=== PATIENT | female | born 1990 | race African-American/Black ===

== ENCOUNTER 2024-04-10 13:55 | Outpatient (CLI) | payer OTHER, SELFPAY ==
--- NOTE | ~2024-04-10 | US_ITS ---
EXAMINATION: US OB <=14 wk fetus w TV DATE: 04/10/2024 14:21 INDICATION: Amenorrhea. Assess dating of first trimester . TECHNIQUE: Real-time pelvic ultrasound utilizing both a transvaginal and transabdominal probe was pe rformed. The interpreting radiologist was not present for the study. COMPARISON: None. FINDINGS: The uterus measures 13.9 x 8.2 x 8.7 cm. There is an intrauterine gestational sac. A yolk sac and fe иван pole are identified. The crown rump length measures 2.7 cm, which correlates with an estimated ge stational age of 9 weeks and 3 days. heart motion is identified measuring 169 beats per minute (bpm) by M-mode Doppler. 1.8 x 1.2 x 0.4 similar hypoechoic subchorionic hematoma along the left side of the gestational sac. There is a 1.8 x 1.5 x 1.2 cm hypoechoic subserosal fibroid at the posterior body of the uterus. The right ovary is not visualized. The left ovary measures 3.1 x 2.6 x 2.7 cm. 1.8 cm anechoic likely corpus luteum cyst in the left ovary. Vascular flow identified in the left ovary on color Doppler. T here is no free fluid in the pelvis. IMPRESSION: 1. Single living fetus with heart rate of 169 bpm. 2. Gestational age by ultrasound of 9 weeks 3 day(s) +/- 6 day(s) with ultrasound estimated date of delivery (ASHANTI) of 11/10/2024. 3. Small subchorionic hematoma. 4. 1.8 cm uterine fibroid. Reviewed, dictated and finalized at location A. P CAPTAIN IMPRESSION: 1. Single living fetus with heart rate of 169 bpm. 2. Gestational age by ultrasound of 9 weeks 3 day(s) +/- 6 day(s) with ultraso und estimated date of delivery (ASHANTI) of 11/10/2024. 3. Small subchorionic hematoma. 4. 1.8 cm uterine fibroid.
== END 2024-04-10 13:56 | disposition home or self-care (01) ==
LOC: MICIMG 13:55
PROVIDERS: PCP Nurse Practitioner Obstetrics & Gynecology; Visit Provider Nurse Practitioner Obstetrics & Gynecology
DX: N91.2 Amenorrhea, unspecified (principal); D25.9 Leiomyoma of uterus, unspecified; Z3A.09 9 weeks gestation of pregnancy
CPT/HCPCS: 76801; 76817

== ENCOUNTER 2024-10-03 12:31 | Observation (INO) | payer OTHER, SELFPAY ==
--- NOTE | ~2024-10-03 | US_ITS ---
LIMITED OBSTETRIC ULTRASOUND/BIOPHYSICAL PROFILE Ordering provider: Emeterio Larson MD History: . GEORGE- perform at bedside due to FHR decelerations . Comparison: None. FINDINGS: MATERNAL CERVIX: Not visualized. cm which is normal (normal is equal to or greater than 3.0 cm). PRESENTATION: Vertex. Longitudinal lie. PLACENTAL LOCATION: Anterior. No previa. HEART RATE: 138 bpm (normal is between 110 to 160 bpm). AMNIOTIC FLUID INDEX: 7.9 cm. 5th percentile is 8.1 cm. 95th percentile is 24.8 cm. Largest vertical pocket is 3 cm. normal (GEORGE between 5-25 cm in from 20-35 weeks gestation is considered normal). OTHER: Maternal ovaries not visualized. SCORE: breathing movements: 2 movements: 2 tone: 2 Amniotic fluid volume: 2 Total: 8 IMPRESSION: Normal biophysical profile. Low amniotic fluid index. Reviewed, dictated and finalized at location A.
--- OUTSIDE RECORDS SUMMARY | 2024-10-03 14:03 | XMS_ITS | Encounter Summary ---
Author Organization [facility] Address [facility] [place] [address] Care Team Providers Care Eight Arm Operator Name Role Phone Regi Borja MD Primary Care Provider [phone] Encounter Details Date Type Department Care Team (Latest Contact Info) Description 03/11/2024 Ener-G-Rotors Message Enc [facility] Medical Group Multispecialty Care - [place] [address] [address] [place] [address] Regi Borja MD [address] [place] [id number] Vaccines/medication for [place], possibly Social History Tobacco Use Types Packs/Day Years Used Date Smoking Tobacco: Never Passive Smoke Exposure: Never Smokeless Tobacco: Never Comments:Counseled by Dr. Sweta larkin. Alcohol Use Standard Drinks/Week Comments Yes 1.7 (1 standard drink = 0.6 oz p ure alcohol) PHQ-2 Answer Date Recorded Patient Health Questionnaire-2 Score 0 02/28/2024 Comments No Sex and Gender Information Value Date Recorded Sex Assigned at Not on file Legal Sex Female 10:53 AM RAIL BONDER Gender Identity Not on file Sexual Orientation Not on file documented as of this encounter Plan of Treatment Not on file documented as of this encounter Visit Diagnoses Not on filedocumented in this encounter Additional Health Concerns Assessment Noted Time PHQ-9 Depression Total Score: 1 02/28/20 24 11:47 AM RAIL BONDER documented as of this encounter Care Teams Eight Arm Operator Relationship Specialty Start Date End Date Regi Borja MD [address] [place] [id number] PCP - General INTERNAL MEDICINE 08/23/22 documented as of this encounter
--- OUTSIDE RECORDS SUMMARY | 2024-10-03 14:03 | XMS_ITS | Referral Summary ---
Author Organization [facility] at the Medical Office Building Address [address] [place] [address] Care Team Providers Care Tool Mechanic Name Role Phone No, Physician Primary Care Provider [phone] Allergies No known active allergies Medications SUMAtriptan (IMITREX) 50 mg tablet Take 1 tablet (50 mg total) by mouth 2 (two) times a day as needed 07/01/2023 Active rimegepant (NURTEC ODT) tablet,disintegr ating Take 1 tablet (75 mg total) by mouth daily as needed 07/01/2023 Active methocarbamoL (ROBAXIN) 750 mg tablet Take 1 tablet (750 mg total) by mouth 2 (two) times a day as needed 07/01/2023 Active ibuprofen 200 mg tab/cap Take 2 tablet/caps ule (400 mg total) by mouth daily as needed Active cetirizine (ZyrTEC) 10 mg tablet Take 1 tablet (10 mg total) by mouth daily as needed Active Active Problems Problem Noted Date Diagnosed Date Supervision of normal first , antepartu 01/05/2019 Overview (08/02/2019): First Trimester: [x] Labs [x] Genetic Screeninnd Trimester: [x] Anatomy ultrasound 3rd Trimester: [x] CBC, HIV, syphilis screen [x] 1hr GCT (26-28wks): [x] Tdap (27-36wks) 06/12 [] Rhogam (if Rh neg): [x] GBS Sprain of anterior talofibular ligament of right ankle 12/28/2018 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 file Not on file Not on file Last Filed Vital Signs Vital Sign Reading Time Taken Comments Blood Pressure 108/60 07/20/2023 10:19 AM CDT Pulse 62 08/09/2019 10:59 AM CDT Temperature 36.9 C (98.5 F) 08/09/2019 10:59 AM CDT Respiratory Rate - - Oxygen Saturation 98% 08/09/2019 10:59 AM CDT Inhaled Oxygen Concentration - - Weight 80.3 kg (177 lb) 07/20/2023 10:19 AM CDT Height 162.6 cm (5' 4) 07/20/2023 10:19 AM CDT Body Mass Index 30.38 07/20/2023 10:19 AM CDT Plan of Treatment Not on file Procedures Procedure Name Priority Date/Time Associated Diagnosis Comments HIGH RISK HPV DNA DETECTION WITH GENOTYPING Routine 07/20/2023 11:40 AM CDT Encounter for screening for malignant neoplasm of cervix HEPATITIS C ANTIBODY Routine 12/28/2018 1:36 PM CDT Missed menses from Last 3 Months or Most Recently Relevant to Health Maintenance Results * High Risk HPV DNA Detection with Genotyping (Molecular component) (07/20/2023 11:40 AM CDT) HPV HR 16 Not Detected Not Detected [facility] Comment:Testing performed by : [facility], [address] [place]., [address] HPV HR 18 Not Detected Not Detected [facility] Comment:Testing performed by : [facility], [address] [place]., [address] HPV HR Non 16/18 Not Detected Not Detected [facility] Comment: Interpretive Data Nucleic acid amplification for detection of high-risk Human Papilloma virus (HPV) is performed by the Jocelyne Estelita 6800 HPV test. This assay specifically detects HPV-16 and HPV-18 genotypes. The following HPV genotypes are detected as high-risk HPV: HPV-31, 33, 35, ,39, 45, 51, 52, 56, 58, 59, 66, and 68. This assay has been approved by the [place] Food and Drug Administration for detection of HPV in cervical specimens collected by a physician using an endocervical brush/spatula or cervical broom and placed in the ThinPrep Pap Test PreservCyt collection containers. The performance characteristics of this test have been verified by the [facility] Molecular Infectious Disease laboratory. Correlate with separately reported cytology results, as applicable. Interpretive data last revised 22 Testing performed by: [facility], [address] [place]., [address] Endocervical 07/20/2023 11:4 0 AM CDT 07/20/2023 6:02 PM CDT Narrative [facility] - 07/21/2023 4:32 AM CDT Clinical history and diagnosis->routine Number of vials->1 Testing type->Screening Last menstrual period (date if known)->07/12/2023 us Gustavo Glass MD LAB BODY FLUIDS AND STOO LS ORDERABLES Final Result [facility] [address] [facility] [place] [address] [facility] * Hepatitis C antibody (12/28/2018 1:36 PM CDT) Pathologist [facility] Hep C Ab NONREACT NONREACTIVE [facility] Comment: Siemens CentaurXP using TONEY (chemiluminescent immunoassay) technology. NONREACTIVE: Antibodies to Hepatitis C not detected. This does not exclude early acute Hepatitis C infection, possibility of exposure to Hepatitis C, antibodies below detection limit, or to lack of antibody reactivity to the antigen used in this assay. EQUIVOCAL: Antibodies to Hepatitis C may or may not be present. Sample to be confirmed by real-time PCR method. REACTIVE: Antibodies to Hepatitis C detected.Sample to be confirmed by real-time PCR method. Blood specimen (specimen) 12/28/2018 1:36 PM CDT 12/28/2018 2:01 PM CDT Narrative Resulting Agency Comment CLI Lalo Snyder DO LAB MICROBIOLOGY - GEN ERAL ORDERABLES Final Result [address] [address], [facility] [phone] from Last 3 Months or Most Recently Relevant to Health Maintenance [facility] [employer] [facility] [id number] Care Teams Tool Mechanic Relationship Specialty Start Date End Date No, Physician PCP - General 12/05/18
--- OUTSIDE RECORDS SUMMARY | 2024-10-03 14:03 | XMS_ITS | Encounter Summary ---
Author Organization [facility] Address [address] [place] [address] Care Team Providers Care Vertical Contour Band Saw Operator Name Role Phone Regi Borja MD Primary Care Provider [phone] Encounter Details Date Type Department Care Team (Latest Contact Info) Description 07/14/2023 Clinipace WorldWidet Message Enc [facility] Medical Group Multispecialty Care - [place] [address] [address] [place], [place] [id number] Regi Borja MD [facility] [address] Multiple Nose bleeds Social History Tobacco Use Types Packs/Day Years Used Date Smoking Tobacco: Never Passive Smoke Exposure: Never Smokeless Tobacco: Never Comments:Counseled by Dr. Sweta larkin. Alcohol Use Standard Drinks/Week Comments Yes 1.7 (1 standard drink = 0.6 oz p ure alcohol) PHQ-2 Answer Date Recorded Patient Health Questionnaire-2 Score 0 05/31/2022 Comments No Sex and Gender Information Value Date Recorded Sex Assigned at Not on file Legal Sex Female 10:53 AM MEDICAL CLAIMS REPRESENTATIVE Gender Identity Not on file Sexual Orientation Not on file documented as of this encounter Plan of Treatment Not on file documented as of this encounter Visit Diagnoses Not on filedocumented in this encounter Care Teams Vertical Contour Band Saw Operator Relationship Specialty Start Date End Date Regi Borja MD [address] [id number] PCP - General INTERNAL MEDICINE 08/23/22 documented as of this encounter
--- OUTSIDE RECORDS SUMMARY | 2024-10-03 14:03 | XMS_ITS | Clinical Summary ---
Author Organization [facility] Address [address] [place] [address] Care Team Providers Care Pain Medicine Physician Name Role Phone Regi Borja MD Primary Care Provider [phone] Allergies No known active allergies Medications ibuprofen (MOTRIN) 200 MG tablet Take 2 tablets (400 mg total) by mouth daily as needed for Pain. Active cetirizine (ZYRTEC) 10 MG tablet Take 1 tablet (10 mg total) by mouth daily as needed for Allergies. Active methocarbamol (ROBAXIN) 750 MG TabIndications:Top Spotter julia midline low back pain with bilateral sciatica Take 1 tablet (750 mg total) by mouth 2 (two) times daily as needed. 60 tablet 1 4 Active rimegepant (NURTEC) 75 MG disintegrating tabletIndications:I ntractable migraine with aura with status migrainosus Take 1 tablet (75 mg total) by mouth daily as needed for Migraine. Max of 1 tablet (75 mg) in 24 hours. 16 tablet 6 4 Active SUMAtriptan (IMITREX) 50 MG tabletIndications:I ntractable migraine with aura with status migrainosus Take 1 tablet (50 mg total) by mouth 2 (two) times daily as needed for Migraine. Max of 4 tablets (200 mg) in 24 hours. 8 tablet 6 4 Active Mefloquine HCl 250 MG TabIndications:Need for malaria prophylaxis Take 250 mg once weekly starting 2 weeks before arrival in endemic area, continue weekly while in endemic area and weekly for 4 weeks after leaving endemic area. 8 tablet 4 Active Active Problems Problem Noted Date Diagnosed Date Acute midline low back pain with bilateral sciat ica 04/15/2023 Immunizations Immunization Administration Dates Next Due Influenza Adult (Generic) 01/31/2024,02/02/2022 Tdap (Generic) 06/13/2019 Family History Medical History Relation Comments Asthma Father Hypertension Father Cancer Maternal Grandfather Hyperlipidemia Mother Diabetes Paternal Grandfather Hyperlipidemia Paternal Grandfather Asthma Sister Relation Status Comments Father Maternal Grandfather Mother Paternal Grandfather Sister Social History Tobacco Use Types Packs/Day Years Used Date Smoking Tobacco: Never Passive Smoke Exposure: Never Smokeless Tobacco: Never Tobacco Cessation:Counseling Given: Yes Comments:Counseled by Dr. Borja. Alcohol Use Standard Drinks/Week Comments Yes 1.7 (1 standard drink = 0.6 oz p ure alcohol) PHQ-2 Answer Date Recorded Patient Health Questionnaire-2 Score 0 02/28/2024 Comments No Sex and Gender Information Value Date Recorded Sex Assigned at Not on file Legal Sex Female 10:53 AM FIRESETTER Gender Identity Not on file Sexual Orientation Not on file Last Filed Vital Signs Vital Sign Reading Time Taken Comments Blood Pressure 115/73 02/28/2024 11:20 AM FIRESETTER Pulse 55 02/28/2024 11:20 AM FIRESETTER Temperature 36.6 C (97.8 F) 02/28/2024 11:20 AM FIRESETTER Respiratory Rate 18 02/28/2024 11:20 AM FIRESETTER Oxygen Saturation 99% 02/28/2024 11:20 AM FIRESETTER Inhaled Oxygen Concentration - - Weight 81 kg (178 lb 9.6 oz) 02/28/2024 11:20 AM FIRESETTER Height 161.3 cm (5' 3.5) 02/28/2024 11:20 AM CS T Body Mass Index 31.14 02/28/2024 11:20 AM FIRESETTER Plan of Treatment Health Maintenance Due Date Last Done Comments Hepatitis B Vaccines (1 of 3 - 19+ 3-dose series) 05/20/2007 Cervical Cancer Screening Pa p with HPV Testing (Age 30 to 64) Every 5 Years 2018 COVID-19 Vaccine ( - 2023-2 5 season) 2023 06/12/2020, 05/15/2020 PHQ-2 (Physician [place]) 03/21/2024 02/28/2024 Annual Physical 02/27/2025 02/28/2024, 07/22/2022 Cervical Cancer Screening Pa p Smear (Age 30 to 64) Every 3 Years 07/19/2026 07/20/2023 Cervical Cancer Screening with HPV 07/19/2026 DTaP, Tdap and Td Vaccines ( 2 - Td or Tdap) 06/12/2029 06/13/2019 Hepatitis C 07/22/2052 Postponed from 2006 (Patient Refused) HPV Vaccines Aged Out No longer eligi ble based on patient's age to complete this topic Meningococcal B Vaccine Aged Out No l onger eligible based on patient's age to complete this topic Meningococcal Vaccine Aged Out No homer antoinette eligible based on patient's age to complete this topic Pneumococcal Vaccine: Pediatrics (0 to 5 Years) and At-Risk Patients (6 to 49 Years) Aged Out No longer eligible b ased on patient's age to complete this topic RSV Immunizations Under 20 Months Aged Out No longer eligible b ased on patient's age to complete this topic Insurance [email or web address] Care Teams Pain Medicine Physician Relationship Specialty Start Date End Date Regi Borja MD [address] [address] PCP - General INTERNAL MEDICINE 08/23/22
--- OUTSIDE RECORDS SUMMARY | 2024-10-03 14:04 | XMS_ITS | Encounter Summary ---
Author Organization [facility] Address [facility] [place] [address] Care Team Providers Care Fish Hatchery Specialist Name Role Phone Regi Borja MD Primary Care Provider Encounter Details Date Type Department Care Team (Late st Contact Info) Description 04/19/2023 MyChart Message Enc [facility] Medical Group Multispecialty Care - [place] [address] [address] [place] [address] Regi Borja MD [facility] [address] Xray Social History Tobacco Use Types Packs/Day Years Used Date Smoking Tobacco: Never Passive Smoke Exposure: Never Smokeless Tobacco: Never Alcohol Use Standard Drinks/Week Comments Yes 1.7 (1 standard drink = 0.6 oz p ure alcohol) PHQ-2 Answer Date Recorded Patient Health Questionnaire-2 Score 0 05/31/2022 Comments No Sex and Gender Information Value Date Recorded Sex Assigned at Not on file Legal Sex Female 10:53 AM OUTPATIENT PHYSICAL THERAPIST Gender Identity Not on file Sexual Orientation Not on file documented as of this encounter Plan of Treatment Not on file documented as of this encounter Visit Diagnoses Not on filedocumented in this encounter Care Teams Fish Hatchery Specialist Relationship Specialty Start Date End Date Regi Borja MD [address] [place] [address] PCP - General INTERNAL MEDICINE 08/23/22 documented as of this encounter
--- OUTSIDE RECORDS SUMMARY | 2024-10-03 14:04 | XMS_ITS | Encounter Summary ---
Author Organization [facility] Address [facility] [place] [address] Care Team Providers Care Water Valve Mechanic Name Role Phone Regi Borja MD Primary Care Provider [phone] Encounter Details Date Type Department Care Team (Latest Contact Info) Description 12/13/2022 Veebowt Message Enc [facility] Medical Group Multispecialty Care - [place] [address] [address] [place] [address] Regi Borja MD [address] [place] [address] PT Referral Request Social History Tobacco Use Types Packs/Day Years [...] on file Legal Sex Female 10:53 AM EXPERIMENTAL ROCKETSLED MECHANIC Gender Identity Not on file Sexual Orientation Not on file documented as of this encounter Plan of Treatment Not on file documented as of this encounter Visit Diagnoses Not on filedocumented in this encounter Care Teams Water Valve Mechanic Relationship Specialty Start Date End Date Regi Borja MD [address] [place] [address] PCP - General INTERNAL MEDICINE 08/23/22 documented as of this encounter
--- OUTSIDE RECORDS SUMMARY | 2024-10-03 14:04 | XMS_ITS | Clinical Summary ---
Author Organization [facility] at the Medical Office Building Address [address] [place] [address] Care Team Providers Care Mill Beam Fitter Name Role Phone No, Physician Primary Care Provider [phone] Allergies No known active allergies Medications SUMAtriptan [...] Immunization Administration Dates Next Due Tdap 06/13/2019 Surgical History Surgery Date Site/Laterality Comments KNEE SURGERY Bilateral R 2004 & L 2008 Medical History Medical History Date Comments Migraines Family History Medical History Relation Name Comments Hypertension Father Thyroid cancer Maternal Grandfather Heart disease Maternal Grandmother Diabetes Paternal Grandfather Breast cancer Neg Hx Ovarian cancer Neg Hx Relation Name Status Comments Father Alive Maternal Grandfather Maternal Grandmother Alive Mother Alive Paternal Grandfather Paternal Grandmother Alive Social History Tobacco Use Types Packs/Day Years Used Date Smoking Tobacco: Never Smokeless Tobacco: Never Alcohol Use Standard Drinks/Week Comments Not Currently 0 (1 standard drink = 0.6 oz pur e alcohol) [place] Depression Scale Answer Date Recorded [place] Depression Scale Total 0 09/18/2019 The thought of harming myself has occurred to me . 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 Stephens Complications:None Last Filed Vital Signs Vital Sign Reading [...] 07/20/2023 10:19 AM CDT Plan of Treatment Health Maintenance Due Date Last Done Comments Varicella Vaccines (1 of 2 - 13+ 2-dose series) 2001 Hepatitis B Screening 2006 Depression Screening 09/17/2020 09/18/2019 Cervical Cancer Screening 07/19/20242023, 07/20/2023 Regular Well Visit/Exam 18-64 07/19/2024 07/20/2023 Influenza Vaccine (#1) 2024 02/02/2022 DTaP/Tdap/Td Vaccine (2 - Td or Tdap) 06/12/2029 06/13/2019 Hepatitis C Screening Completed 12/28/2018 HPV Vaccines Aged Out No longer eligi ble based on patient's age to complete this topic Pneumococcal vaccine <65 Aged Out No longer eligible based on patient's age to complete this topic Procedures Procedure Name Priority Date/Time Associated Diagnosis [...] HR 16 Not Detected Not Detected [facility] Comment:Testing performed by : [facility], [address] [facility] [place]., [address] HPV HR 18 Not Detected Not Detected [facility] Comment:Testing performed by : [facility], [address] [place]., [address] HPV HR Non 16/18 Not Detected Not Detected [facility] Comment: Interpretive Data Nucleic acid amplification for [...] this test have been verified by the [facility] Molecular Infectious Disease laboratory. Correlate with separately reported cytology results, as applicable. Interpretive data last revised 22 Testing performed by: [facility], [address] [facility] [place]., [address] Endocervical 07/20/2023 11:4 0 AM CDT 07/20/2023 6:02 PM CDT Narrative [facility] - 07/21/2023 4:32 AM CDT Clinical history and diagnosis->routine Number of vials->1 Testing type->Screening Last menstrual period (date if known)->07/12/2023 Gustavo Glass MD LAB BODY FLUIDS AND STOO LS ORDERABLES Final Result [facility] [address] [facility] Department [place] [address] [facility] * Hepatitis C antibody (12/28/2018 1:36 PM CDT) Hep C Ab NONREACT NONREACTIVE [facility] Comment: Siemens Swink.tvaurXP using TONEY (chemiluminescent immunoassay) technology. NONREACTIVE: Antibodies [...] PM CDT Narrative Resulting Agency Comment CLI us Lalo Snyder DO LAB MICROBIOLOGY - GEN ERAL ORDERABLES Final Result [facility] [address] [place] [address], [facility] [phone] from Last 3 Months or Most Recently Relevant to Health Maintenance Insurance [employer] [facility] [id number] Member Subscriber Plan / Payer (Ef fective 2020-Present) Name:Johanna Salmon Member ID:[id number] Relation to Subscriber:Self Name:Johanna Salmon Subscriber ID:[id number] Payer ID:[id number] Type:[employer] HMO/PPO Address: [address] [place] [id number] Care Teams Mill Beam Fitter Relationship Specialty Start Date End Date No, Physician PCP - General 12/05/18
[2024-10-03 14:14] VITALS: BP 114/65; PULSE 68
[2024-10-03 14:15] VITALS: BP 121/70; PULSE 72
[2024-10-03] MEDS: TERBUTALINE SULFATE 1 MG/ML VIAL 0.25 MG SUB-Q ×2 (14:15→15:16)
[2024-10-03 15:09] LABS: Hematocrit 33.7 % (37.0-47.0); Hemoglobin 11.5 g/dL (12.0-15.0); Immature Granulocyte Percent A 0.3 % (0-0.5); Lymphocytes Absolute Auto 1.96 K/mm3 (0.9-3.2); Mean Corpuscular HGB Conc 34.1 g/dl (32-36); Mean Corpuscular Hemoglobin 31.2 pg (26-34); Mean Corpuscular Volume 91.3 fl (80-100); Nucleated Red Blood Cells Absolute Auto 0.000 K/mm3 (0.0-0.012); Nucleated Red Blood Cells Perc 0.0 % (0.0-0.2); Platelet Count Result 192 k/mm3 (150-375); Red Blood Count 3.69 M/mm3 (4.2-5.4); White Blood Count 8.8 K/mm3 (4.5-10.0)
[2024-10-03 15:16] VITALS: BP 131/66; PULSE 78
[2024-10-03 15:25] LABS: INR 1.0; Partial Thromboplastin Time 27.0 Seconds (22.3-36.8); Prothrombin Time 13.6 Seconds (11.1-14.7)
[2024-10-03 15:26] LABS: Fibrinogen 364 mg/dl (215-510)
[2024-10-03 15:30] LABS: Add Urine Microscopic? NO; Appearance Urine Clear (Clear); Glucose Urine UA Negative (Negative); Leukocyte Esterase Ur Negative LEU/UL (Negative); Nitrate Urine Negative (Negative); Specific Grav Ur 1.008 (1.001-1.035)
[2024-10-03 15:47] VITALS: BMI 35.4
--- NOTE | 2024-10-03 15:49 | OBADM ---
This patient, Johanna Salmon, admitted to the OB room 115 for observation. Patient/family oriented to hospital policies and general routines including ID bracelet, bed and alarms, visiting hours, pain management, procedures, bathroom and other care routines, personal items, smoking policy, room service/diet, and visiting hours. Patient/Family are encouraged to report perceived risks to care and to ask questions if they do not understand what they are told or what they should do.
[2024-10-03 16:01] VITALS: BP 115/66; PULSE 90
[2024-10-03 17:00] VITALS: BP 107/50; PULSE 79
--- NOTE | 2024-10-03 18:22 | PC.NURSE ---
Dr. Larson called for an update. New orders received to discharge patient at this time.
--- NOTE | 2024-10-03 18:49 | PC.NURSE ---
This RN clarified orders with Dr. Larson at this time to send a script to the pharmacy for Procardia.
--- NOTE | 2024-10-03 18:58 | PC.NURSE ---
RN discussed discharge with the patient at this time. Verbal discharge instructions were discussed and questions answered. Patient feels comfortable leaving at this time.
--- NOTE | 2024-10-17 13:09 | PM.OBTRLD ---
OB - Triage/Final Diagnosis Visit Information Comments/Additional reasons for admission: I have assessed the risk for this patient, Johanna Salmon, and determined that she would benefit from observation care. Evaluation Laboratory results: Laboratory Tests 10/03/24 10/03/24 14:52 15:22 WBC 8.8 RBC 3.69 L Hgb 11.5 L Hct 33.7 L MCV 91.3 MCH 31.2 MCHC 34.1 RDW 12.8 Plt Count 192 MPV 10.6 H Immature Gran % (Auto) 0.3 Neut % (Auto) 69.1 Lymph % (Auto) 22.2 [place] % (Auto) 7.4 Eos % (Auto) 0.7 Baso % (Auto) 0.3 Lymph # (Auto) 1.96 [place] # (Auto) 0.7 H Eos # (Auto) 0.1 Baso # (Auto) 0.0 Abs Immat Gran (auto) 0.03 Absolute Neuts (auto) 6.1 Absolute Nucleated RBC 0.000 Nucleated RBC % 0.0 PT 13.6 INR 1.0 APTT 27.0 Fibrinogen 364 Urine Color Yellow Urine Appearance Clear Urine pH 6.0 Ur Specific [place] 1.008 Urine Protein Negative Urine Glucose (UA) Negative Urine Ketones 2+ H Ur Blood (Man) Negative Urine Nitrate Negative Urine Bilirubin Negative Urine Urobilinogen 0.2 Leukocyte Esterase Rfl Negative KB Hemoglobin Negative Final Diagnosis (1) Decreased movement: Code(s): O36.8190 - Decreased movements, unspecified trimester, not applicable or unspecified Status: Acute (2) contractions: Code(s): O47.00 - False labor before 37 completed weeks of gestation, unspecified trimester Status: Acute
== END 2024-10-03 18:59 | disposition home or self-care (01) ==
LOC: ANHOBOP 14:01 → ANHLDR 14:04 → ANHOBPP 14:05
PROVIDERS: Admitting Provider Obstetrics & Gynecology; Visit Provider Obstetrics & Gynecology
DX: O36.8130 Decreased fetal movements, third trimester, not applicable or unspecified (principal); O47.03 False labor before 37 completed weeks of gestation, third trimester; Z3A.34 34 weeks gestation of pregnancy
CPT/HCPCS: 36415; 76819; 81003; 85025; 85384; 85460; 85610; 85730; 96372; A9270; G0378; G0379; J3105

== ENCOUNTER 2024-10-08 12:17 | Outpatient (CLI) | payer OTHER, SELFPAY ==
--- NOTE | ~2024-10-08 | US_ITS ---
US OB limited 10/08/2024 13:57 Indication: History of contractions Procedure: High-resolution Limited obstetrical ultrasound Comparison: Ultrasound dated 10/03/2024 Findings: There is a single living intrauterine in vertex presentation. heart rate 15 0 BPM. Placenta anterior without previa. GEORGE is normal measuring 12.3 cm. Impression: 1: Single living intrauterine in vertex presentation. 2: Anterior placenta without previa. Reviewed, dictated and finalized at location A. Impression: 1: Single living intrauterine in vertex presentation. 2: Anterior placenta without previa.
--- OUTSIDE RECORDS SUMMARY | 2024-10-08 12:24 | XMS_ITS | Clinical Summary ---
Author Organization [facility] Address [address] [place] [address] Care Team Providers Care Tree Pruner Name Role Phone No, Physician Primary Care Provider Allergies No known active allergies Medications SUMAtriptan [...] drink = 0.6 oz pur e alcohol) [place] Depression Scale Answer Date Recorded [place] Depression Scale Total 0 09/18/2019 The thought of harming myself has occurred to me . 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 Correlate with separately reported cytology results, as applicable. Interpretive data last revised 22 Testing performed by: [facility], [address] [facility] [place] [address] Endocervical 07/20/2023 11:4 0 AM CDT 07/20/2023 6:02 PM CDT Narrative [facility] ACOSTA - 07/21/2023 4:32 AM CDT Clinical history and diagnosis->routine Number of vials->1 Testing type->Screening Last menstrual period (date if known)->07/12/2023 Gustavo Glass MD LAB BODY FLUIDS AND STOO LS ORDERABLES Final Result [facility] [address] [facility] Department [place] [address] [facility] * Hepatitis C antibody (12/28/2018 1:36 PM CDT) Hep C Ab NONREACT NONREACTIVE [facility] Comment: Siemens HihoCoderaurXP using TONEY (chemiluminescent immunoassay) technology. NONREACTIVE: Antibodies [...] MICROBIOLOGY - GEN ERAL ORDERABLES Final Result [facility] [address] [place] [address], [facility] [phone] from Last 3 Months or Most Recently Relevant to Health Maintenance Insurance [employer] [facility] [id number] Member Subscriber Plan / Payer (Ef fective 2020-Present) Name:Johanna Salmon Member ID:[id number] Relation to Subscriber:Self Name:Johanna Salmon Subscriber ID:[id number] Payer ID:[id number] Type:[employer] HMO/PPO Address: [address] [place] [id number] Care Teams Tree Pruner Relationship Specialty Start Date End Date No, Physician PCP - General 12/05/18
--- OUTSIDE RECORDS SUMMARY | 2024-10-08 12:24 | XMS_ITS | Clinical Summary ---
Author Organization [facility] Address [address] [place] [address] Phone Care Team Providers Care Assembler Bicycle Name Role Phone Unavailable Primary Care Provider Unavailabl e Encounters Date Type Department Care Team Description 10/03/2024 External Device Data ST[facility] ABSTRACTION Provider, Abstract 10/02/2024 External Device Data [facility] ABSTRACTION Provider, Abstract 09/20/2024 1:15 PM CDT - 09/20/2024 11:59 PM CDT Hospital Encounter [facility] Maternal and Ground Floor [address] [address] Jakob Sunshine MD Discharge Disposition: Home or Self Care 09/04/2024 External Device Data [facility] ABSTRACTION Provider, Abstract 08/09/2024 External Device Data [facility] ABSTRACTION Provider, Abstract 08/08/2024 External Device Data [facility] ABSTRACTION Provider, Abstract 08/07/2024 External Device Data [facility] ABSTRACTION Provider, Abstract 07/16/2024 8:00 AM CDT - 07/16/2024 11:59 PM CDT Hospital Encounter [facility] Donny Whitman [address] [place] [id number] Lelo Wright MD Discharge Disposition: Home or Self Care from Last 3 Months Social History Tobacco Use Types Packs/Day Years Used Date Smoking Tobacco: Never Assessed Comments Unknown Sex and Gender Information Value Date Recorded Sex Assigned at Not on file 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 Gender Identity Not on file Sexual Orientation Not on file Plan of Treatment Upcoming Encounters Date Type Department Care Team (Late st Contact Info) Description 10/15/2024 9:30 AM CDT Appointment [facility] Maternal and Ground Floor [address] [place] [phone] Jakob Sunshine MD [address] [address] Health Maintenance Due Date Last Done Comments Pre-Diabetes and Diabetes Screening 1990 HPV VACCINES (1 - 3-dose series) 05/20/2003 HEPATITIS B VACCINES (1 of 3 - 19+ 3-dose series) 05/20/2007 HPV/Cotest (21-29) 2009 HPV/Cotest (30-65) 2018 Preventative Visit- Commercial 03/21/2024 1 04/30/2023, 07/20/2023, 07/22/2022 INFLUENZA VACCINE (#1) 2024 CERVICAL CANCER SCREENING 07/19/2026 PAP SMEAR 07/19/2026 07/20/2023 DTAP/TDAP/TD VACCINES (2 - T d or Tdap) 06/12/2029 06/13/2019 Procedures Procedure Name Priority Date/Time Associated Diagnosis Comments US OB FOLLOW UP PER FETUS Routine 09/20/2024 1:45 PM CDT Encounter for other screening follow-up US OB FOLLOW UP PER FETUS Routine 07/16/2024 8:40 AM CDT Advanced maternal age in multigravida, second trimester screening for malformation using ultrasonics from Last 3 Months Results * US OB FOLLOW UP PER FETUS (09/20/2024 1:45 PM CDT) Only the most recent of2 resultswithin the time period is included. Anatomical Region Laterality Modality Pelvis Ultrasound 09/20/2024 1:22 PM CDT Narrative 09/20/2024 1:58 PM CDT [facility] FOLLOW UP ----- Pat. Name: ANGELITA SPRAGUE Study Date: 09/20/2024 1:22pm Pat. NO: [id number] Referring MD: JAKOB SUNSHINE MD Site: [facility] Airplane Fueler: Mayuri Helton RDMS : 1990 Age: 34 ----- INDICATION ----- Screening Follow-Up Advanced Maternal Age (AMA), Multigravida CODING ----- Diagnoses Z3A.32: Weeks of gestation O09.523: Supervision of elderly multigravida Z36.2: Encounter for other screening follow-up Procedures [id number]: Ultrasound, uterus, real time with image documentation, follow up, transabdominal approach per fetus HISTORY ----- OB History 2. Para 1 T1L1 METHOD ----- Transabdominal ultrasound examination ----- Espinal . Number of fetuses: 1 DATING ----- GA by prior assessment 32 w + 3 d ASHANTI by prior assessment: 11/12/2024 Ultrasound examination on: 09/20/2024 GA by U/S based upon: AC, BPD, EFW, Femur, HC GA by U/S 35 w + 5 d ASHANTI by U/S: 10/20/2024 Method of dating: Restore dating from previous exam Assigned: based on stated ASHANTI, selected on 06/25/2024 Assigned GA 32 w + 3 d Assigned ASHANTI: 11/12/2024 BIOMETRY ----- BPD 89.3 mm 36w 1d >99% Hadlock OFD 119.3 mm -/- >99% Giovana HC 332.4 mm 37w 6d >99% Hadlock AC 318.8 mm 35w 6d >99% Hadlock Femur 65.0 mm 33w 4d 68% Hadlock HC / AC 1.04 40% Nicolaides Weight Calculation: EFW 2,684 g 35w 3d >99% Hadlock EFW (lb,oz) 5 lb 15 oz EFW by Hadlock ([id number]) Extremities / Bony Struc Biometry: FL / BPD 0.73 FL / HC 0.20 FL / AC 0.20 GENERAL EVALUATION ----- Cardiac activity present. FHR 135 bpm. movements: present. Presentation: cephalic Placenta: anterior Umbilical cord: Cord vessels: 3 vessel cord. Insertion site: placental insertion: normal Amniotic fluid: Amount of AF: normal amount. MVP 5.1 cm. GEORGE 14.8 cm. Q1 5.1 cm, Q2 4.6 cm, Q3 0.0 cm, Q4 5.1 cm ANATOMY ----- The following structures appear normal: Head / Neck Cranium. Cavum septi pellucidi. Cerebellum. Cisterna magna. Heart / Thorax RVOT view. LVOT view. Diaphragm. Abdomen Stomach. Kidneys. Bladder. GROWTH OVERVIEW ----- Exam date GA BPD (mm) HC (mm) AC (mm) FL (mm) HL (mm) EFW (g) 06/25/2024 20w 0d 51.0 94% 185.8 82% 165.2 89% 34.7 75% 35.0 98% 410 96% 07/16/2024 23w 0d 60.7 94% 218.9 72% 198.8 86% 42.1 63% 669 91% 09/20/2024 32w 3d 89.3 >99% 332.4 >99% 318.8 >99% 65.0 68% 2,684 >99% COMMENT ----- Patient's name and date of were verified by the chiller hand prior to the exam IMPRESSION ----- Viable at 32 weeks gestation. complicated by advanced maternal age. Patient reports that she passed her first glucose challenge test but a second glucose challenge test has been ordered by her physician. She plans to repeat the GCT soon. Cephalic presentation biometry is consistent with LGA growth Estimated weight is greater than 99th percentile. Both head circumference and abdominal circumference are greater than 99th percentile. No structural malformations identified Amniotic fluid volume is normal Anterior placenta with normal placental cord insertion appreciated; placenta is not low-lying Ultrasound findings were discussed with patient. No follow-up ultrasounds were scheduled at this time Consider follow-up ultrasound near term to assist with delivery planning Procedure Note Brian Yuan MD - 09/20/2024 [facility] FOLLOW UP ----- Pat. Name:Sigifredo SPRAGUE Date:09/20/2024 1:22pm Pat. NO: [id number] MD:JAKOB SUNSHINE MD [facility] Hel[facility] RDMS :1990Age:34 ----- INDICATION ----- Screening Follow-Up Advanced Maternal Age (AMA), Multigravida CODING ----- Diagnoses Z3A.32: Weeks of gestation O09.523: Supervision of elderly multigravida Z36.2: Encounter for other screeningfollow-up Procedures [id number]: Ultrasound, uterus, real time withimage documentation, follow up, transabdominal approach per fetus HISTORY ----- OB History 2. Para 1 T1L1 METHOD ----- Transabdominal ultrasound examination ----- Espinal . Number of fetuses: 1 DATING ----- GA by prior [id number] w + 3 d ASHANTI by prior assessment:11/12/2024 Ultrasound examination on:09/20/2024 GA by U/S based upon:AC, BPD, EFW, Femur, HC GA by U/S35 w + 5 d ASHANTI by U/S:10/20/2024 Method of dating:Restore dating from previous exam Assigned:based on stated ASHANTI, selected on 06/25/2024 Assigned GA32 w + 3 d Assigned ASHANTI:11/12/2024 BIOMETRY ----- BPD 89.3 mm 36w 1d >99%Hadlock OFD 119.3 mm -/- >99%Giovana HC 332.4 mm 37w 6d >99%Hadlock AC 318.8 mm 35w 6d >99%Hadlock Femur 65.0 mm 33w 4d 68%Hadlock HC / AC 1.04 40%Nicolaides Weight Calculation: EFW 2,684 g 35w 3d>99% Hadlock EFW (lb,oz) 5 lb 15 oz EFW by Hadlock ([id number]) Extremities / Bony Struc Biometry: FL / BPD 0.73 FL / HC 0.20 FL / AC 0.20 GENERAL EVALUATION ----- Cardiac activity present. FHR 135 bpm. movements: present.Presentation: cephalic Placenta: anterior Umbilical cord: Cord vessels: 3 vessel cord. Insertion site: placentalinsertion: normal Amniotic fluid: Amount of AF: normal amount. MVP 5.1 cm. GEORGE 14.8 cm. Q15.1 cm, Q2 4.6 cm, Q3 0.0 cm, Q4 5.1 cm ANATOMY ----- The following structures appear normal: Head / Neck Cranium. Cavum septi pellucidi. Cerebellum.Cisterna magna. Heart / Thorax RVOT view. LVOT view. Diaphragm. Abdomen Stomach. Kidneys. Bladder. GROWTH OVERVIEW ----- Exam date GA BPD (mm) HC (mm) AC (mm)FL (mm) HL (mm) EFW (g) 06/25/2024 20w 0d 51.0 94% 185.8 82% 165.2 89%34.7 75% 35.0 98% 410 96% 07/16/2024 23w 0d 60.7 94% 218.9 72% 198.8 86%42.1 63% 669 91% 09/20/2024 32w 3d 89.3 >99% 332.4 >99% 318.8 >99%65.0 68% 2,684 >99% COMMENT ----- Patient's name and date of were verified by the chiller hand prior tothe exam IMPRESSION ----- Viable at 32 weeks gestation. complicated by advancedmaternal age. Patient reports that she passed her first glucose challenge test but a second glucose challenge test has beenordered by her physician. She plans to repeat the GCT soon. Cephalic presentation biometry is consistent with LGA growth Estimated weight is greater than 99th percentile. Both headcircumference and abdominal circumference are greater than 99th percentile. No structural malformations identified Amniotic fluid volume is normal Anterior placenta with normal placental cord insertion appreciated;placenta is not low-lying Ultrasound findings were discussed with patient. No follow-up ultrasounds were scheduled at this time Consider follow-up ultrasound near term to assist with delivery planning us Jakob Sunshine MD US ORDERABLES Final Result from Last 3 Months Insurance [facility] [employer]
--- OUTSIDE RECORDS SUMMARY | 2024-10-08 12:24 | XMS_ITS | Encounter Summary ---
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
--- OUTSIDE RECORDS SUMMARY | 2024-10-08 12:24 | XMS_ITS | Encounter Summary ---
Author Organization [facility] Address [facility] [place] [address] Care Team Providers Care Shoe Turner Name Role Phone eRgi Borja MD Primary Care Provider [phone] Encounter Details Date Type Department Care Team (Latest Contact Info) Description 03/11/[email or web address] 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
--- OUTSIDE RECORDS SUMMARY | 2024-10-08 12:24 | XMS_ITS | Encounter Summary ---
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
--- OUTSIDE RECORDS SUMMARY | 2024-10-08 12:24 | XMS_ITS | Clinical Summary ---
Author Organization [facility] Address [address] [place] [address] Care Team Providers Care Bottling Line Operator Name Role Phone Regi Borja MD Primary Care Provider [phone] Allergies No known active allergies Medications ibuprofen (MOTRIN) 200 MG tablet Take 2 tablets (400 mg total) by mouth daily as needed for Pain. Active cetirizine (ZYRTEC) 10 MG tablet Take 1 tablet (10 mg total) by mouth daily as needed for Allergies. 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 Gender Identity Not on file Sexual Orientation Not on file Last Filed Vital Signs Vital Sign Reading Time Taken Comments Blood Pressure 115/73 02/28/2024 11:20 AM STRATEGY CONSULTANT Pulse 55 02/28/2024 11:20 AM STRATEGY CONSULTANT Temperature 36.6 C (97.8 F) 02/28/2024 11:20 AM STRATEGY CONSULTANT Respiratory Rate 18 02/28/2024 11:20 AM STRATEGY CONSULTANT Oxygen Saturation 99% 02/28/2024 11:20 AM STRATEGY CONSULTANT Inhaled Oxygen Concentration - - Weight 81 kg (178 lb 9.6 oz) 02/28/2024 11:20 AM STRATEGY CONSULTANT Height 161.3 cm (5' 3.5) 02/28/2024 11:20 AM CS T Body Mass Index 31.14 02/28/2024 11:20 AM STRATEGY CONSULTANT Plan of Treatment Health Maintenance Due Date Last Done Comments Hepatitis B Vaccines (1 of 3 - 19+ 3-dose series) 05/20/2007 HPV Vaccines (1 - 3-dose SCD M series) 05/20/2015 Cervical Cancer Screening Pa p with HPV Testing (Age 30 to 64) Every 5 Years 2018 COVID-19 Vaccine (3 - 2023-2 5 season) 2023 06/12/2020, 05/15/2020 PHQ-2 (Physician [place]) 03/21/2024 02/28/2024 Annual Physical 02/27/2025 02/28/2024, 07/22/2022 Cervical Cancer Screening Pa p Smear (Age 30 to 64) Every 3 Years 07/19/2026 07/20/2023 Cervical Cancer Screening with HPV 07/19/2026 DTaP, Tdap and Td Vaccines ( 2 - Td or Tdap) 06/12/2029 06/13/2019 Hepatitis C 07/22/2052 Postponed from 2006 (Patient Refused) Meningococcal B Vaccine Aged Out No l [...] patient's age to complete this topic Insurance [employer] Care Teams Bottling Line Operator Relationship Specialty Start Date End Date Regi Borja MD [address] [facility] [address] [place] [address] PCP - General INTERNAL MEDICINE 08/23/22
--- OUTSIDE RECORDS SUMMARY | 2024-10-08 12:24 | XMS_ITS | Encounter Summary ---
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
--- OUTSIDE RECORDS SUMMARY | 2024-10-08 12:24 | XMS_ITS | Referral Summary ---
Author Organization [facility] Address [address] [place] [address] Care Team Providers Care Cane Flume Watchman Name Role Phone No, Physician Primary Care Provider [phone] Allergies No known active allergies Medications SUMAtriptan [...] drink = 0.6 oz pur e alcohol) [place] Depression Scale Answer Date Recorded [place] Depression Scale Total 0 09/18/2019 The thought of harming myself has occurred to me . 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 Correlate with separately reported cytology results, as applicable. Interpretive data last revised 22 Testing performed by: [facility], [address] [place]., [address] Endocervical 07/20/2023 11:4 0 AM CDT 07/20/2023 6:02 PM CDT Narrative [facility]ER[facility]AND ACOSTA - 07/21/2023 4:32 AM CDT Clinical history and diagnosis->routine Number of vials->1 Testing type->Screening Last menstrual period (date if known)->07/12/2023 us Gustavo Glass MD LAB BODY FLUIDS AND STOO LS ORDERABLES Final Result [facility] ACOSTA [address] [facility] [place] [address] [facility] * Hepatitis C antibody (12/28/2018 1:36 PM CDT) Pathologist [facility] Hep C Ab NONREACT NONREACTIVE [facility] [...] MICROBIOLOGY - GEN ERAL ORDERABLES Final Result [address] [address], [facility] [phone] from Last 3 Months or Most Recently Relevant to Health Maintenance [facility] [id number] Care Teams Cane Flume Watchman Relationship Specialty Start Date End Date No, Physician PCP - General 12/05/18
[2024-10-08 12:46] VITALS: BP 110/63; PULSE 88
[2024-10-08 13:01] VITALS: BP 107/62; PULSE 75
[2024-10-08 13:15] VITALS: BP 106/59; PULSE 71
[2024-10-08 14:26] LABS: OBXCEM ROM Plus Negative (Negative)
== END 2024-10-08 14:20 | disposition home or self-care (01) ==
LOC: ANHOBOP 12:21 → ANHOBPP 12:21
PROVIDERS: Visit Provider Obstetrics & Gynecology
DX: O42.90 Premature rupture of membranes, unspecified as to length of time between rupture and onset of labor, unspecified weeks of gestation (principal); Z3A.00 Weeks of gestation of pregnancy not specified
CPT/HCPCS: 59025; 76815; 84112; 99199

== ENCOUNTER 2024-10-29 10:06 | Outpatient (RCR) | payer OTHER, SELFPAY ==
[2024-10-15 14:36] VITALS: BP 100/64; PULSE 92
[2024-10-15 15:26] LABS: HIV 1/2 Ab P24 Ag Result Negative (Negative)
[2024-10-22 13:30] VITALS: BP 100/62; PULSE 69
--- NOTE | ~2024-10-29 | US_ITS ---
US OB limited 10/29/2024 10:52 Indication: Evaluate amniotic fluid Procedure: Limited obstetrical ultrasound Comparison: 10/22/2024 Findings: There is a single living intrauterine and vertex presentation. Placenta is fundal /anterior without previa. GEORGE is normal measuring 7.8 cm (normal range for gestational age 7.3-23.9 c m). heart rate 129 BPM. Impression: 1: Normal GEORGE measures 7.8 cm. Reviewed, dictated and finalized at location A. Impression: 1: Normal GEORGE measures 7.8 cm.
--- NOTE | ~2024-10-29 | US_ITS ---
US OB limited 10/22/2024 13:32 Indication: Evaluate GEORGE. Uterine irritability. Procedure: Limited obstetrical ultrasound utilizing transabdominal technique Comparison: Comparison to ultrasound dated 10/08/2024 Findings: There is a single living intrauterine in vertex presentation. heart rate 12 6 BPM. Amniotic fluid is subjectively normal. GEORGE measures 9.4 cm (normal range for gestational age 7 .5-24.4 cm). Impression: 1: Single living intrauterine in vertex presentation. 2: Normal GEORGE measures 9.4 cm. Reviewed, dictated and finalized at location A. Impression: 1: Single living intrauterine in vertex presentation. 2: Normal GEORGE measures 9.4 cm.
[2024-10-29 11:53] VITALS: BP 108/61; PULSE 69
== END 2024-11-15 13:40 | disposition other institution (70) ==
LOC: ANHOBOP 10:06
PROVIDERS: Visit Provider Obstetrics & Gynecology
DX: Z11.4 Encounter for screening for human immunodeficiency virus [HIV] (principal); Z11.3 Encounter for screening for infections with a predominantly sexual mode of transmission
CPT/HCPCS: 36415; 59025; 76815; 86703; G0432

== ENCOUNTER 2024-11-06 17:09 | Inpatient (IN) | payer OTHER, SELFPAY ==
[2024-11-06 17:42] VITALS: BMI 34.4
--- NOTE | 2024-11-06 17:43 | LDADM ---
This patient, Johanna Salmon, was admitted to Labor/Delivery/Recovery 103 on 11/06/24 at 17:09. Plans for labor, pain management and were discussed with patient. Patient/family oriented to hospital policies and general routines including ID bracelet, bed and alarms, visiting hours, pain management, procedures, bathroom and other care routines, personal items, smoking policy, room service/diet and guest tray routines, security routines, and visiting hours. Patient/Family are encouraged to report perceived risks to care and to ask questions if they do not understand what they are told or what they should do. See OBIX for further documentation.
[2024-11-06 17:57] LABS: Hematocrit 32.5 % (37.0-47.0); Hemoglobin 11.7 g/dL (12.0-15.0); Immature Granulocyte Percent A 0.4 % (0-0.5); Lymphocytes Absolute Auto 1.63 K/mm3 (0.9-3.2); Mean Corpuscular HGB Conc 36.0 g/dl (32-36); Mean Corpuscular Hemoglobin 31.9 pg (26-34); Mean Corpuscular Volume 88.6 fl (80-100); Nucleated Red Blood Cells Absolute Auto 0.000 K/mm3 (0.0-0.012); Nucleated Red Blood Cells Perc 0.0 % (0.0-0.2); Platelet Count Result 213 k/mm3 (150-375); Red Blood Count 3.67 M/mm3 (4.2-5.4); White Blood Count 8.1 K/mm3 (4.5-10.0)
[2024-11-06 18:25] VITALS: BP 106/62; PULSE 74
[2024-11-06 18:45] VITALS: BP 104/67; PULSE 69
[2024-11-06 18:47] LABS: Syphilis IgG/IgM Antibody Non-Reactive (Nonreactive)
[2024-11-06 19:00] VITALS: BP 111/59; PULSE 62; TEMP 36.3
[2024-11-06 19:15] VITALS: BP 115/68; PULSE 71
[2024-11-06 22:26] VITALS: BP 114/59; PULSE 59; PULSE 62; O2SAT 98
[2024-11-06 22:27] VITALS: RESP 18; TEMP 36.5
[2024-11-07] VITALS (269 sets, daily range): BP systolic 67–185; BP diastolic 33–152; PULSE 52–157; RESP 18–20; TEMP 36.3–37.3; O2SAT 70–100
[2024-11-07] MEDS: OXYTOCIN 30 UNITS/NS 500 ML 30 UNITS/500 ML BAG IV CONT (08:05)
[2024-11-07] MEDS: LACTATED RINGERS 1,000 ML 125 ML IV CONT ×3 (08:05→15:26)
--- NOTE | 2024-11-07 08:18 | P.HP_ITS ---
H&P: HPI History of Present Illness Date/Time: 11/07/24 08:18 Chief Complaint: Induction of labor Narrative: 34 y/o at 39 weeks admitted for [facility]. PNC significant for LGA,AMA, contractions. She has been informed of risk/benefits of induction versus spontaneous labor and has opted for induction of labor. Review of Systems Review of Systems: All systems reviewed & are unremarkable except as noted in HPI and below Constitutional: Constitutional: Reports no additional constitutional complaints and Denies headache(s) Eyes: Eyes: Denies spots in vision ENT: Reports system reviewed and no additional complaints, except as documented and Denies headache(s) Cardiovascular: Cardiovascular: Denies chest pain and Denies dyspnea Respiratory: Respiratory: Denies dyspnea Gastrointestinal: Gastrointestinal: Reports no additional gastrointestinal complaints Genitourinary: Genitourinary: Reports amenorrhea Musculoskeletal: Musculoskeletal: Reports no additional musculoskeletal complaints Integumentary/Breasts: Skin/Breast: Denies breast mass and Denies rash Neurologic: Denies headache(s) Psychiatric: Psychiatric: Reports no additional psychiatric complaints [facility] Past Medical History Medical History Anemia Surgical History Surgical History [place] teeth removed H/O knee surgery Family History Family History Father Hypertension Asthma Grandparent Family history of malignant neoplasm of brain Diabetes mellitus Cerebrovascular accident Family history of type 2 diabetes mellitus Hypertension Liver cancer Sibling Asthma Social History Social History Smoking status: Never smoker Alcohol intake: former Substance use: never Do You Feel Safe in your Home?: Yes Lack of Transportation: No Lack of Food: Never True Current Housing: I Have Housing Concerned About Future Housing: No Difficulty Paying Gas/Electric Bills: No Difficulty Paying for Meds: No Currently Unemployed: No Education: Master's Degree or Higher Difficulty w/ Childcare or Family Care: No Spiritual care concerns: No Meds Home Medications and Allergies Home Medications ?Medication ?Instructions ?Recorded ?Confirmed ?Type cetirizine 10 mg tablet (Zyrtec) 10 mg PO DAILY PRN al mauriciogy symptoms 04/06/24 11/06/24 History docosahexaenoic acid 200 mg 200 mg PO DAILY 04/06/24 0 11/06/24 History capsule ( DHA) aspirin 81 mg tablet 81 mg PO DAILY 09/07/2410/19 History ferrous sulfate 137 mg (45 mg 137 mg PO DAILY 10/15/24 11/06/24 History iron) tablet,extended release (Slow Fe) Allergies Allergy/AdvReac Type Severity Reaction Status Date / Time No Known Allergies Allergy Verified 11/06/24 18:03 Vital Signs Vital Signs - 24 hr 11/06/24 17:42 11/06/24 18:25 11/06/24 18:45 Temperature Pulse Rate 74 69 Respiratory Rate Blood Pressure 106/62 104/67 Pulse Oximetry Oxygen Delivery Room Air 11/06/24 19:00 11/06/24 19:15 11/06/24 22:26 Temperature 97.4 F L Pulse Rate 62 71 59 L Respiratory Rate Blood Pressure 111/59 L 115/68 114/59 L Pulse Oximetry 98 Oxygen Delivery 11/06/24 22:27 11/07/24 00:39 11/07/24 06:13 Temperature 97.7 F Pulse Rate 53 L 68 Respiratory Rate 18 Blood Pressure 100/56 L 102/50 L Pulse Oximetry Oxygen Delivery 11/07/24 08:16 Temperature Pulse Rate Respiratory Rate Blood Pressure Pulse Oximetry 96 Oxygen Delivery Exam Const: General: no acute distress Eyes: General: appearance normal, both eyes and all related structures Resp: Effort & Inspection: normal respiratory effort Cardio: Rate: regular rate GI: Other: Gravid no fundal tenderness no right upper quadrant pain Skin: General skin exam: no rashes or lesions noted Neuro: Cognition (Neuro): normal cognition Extrem: General: normal to inspection Psych: Mental Status: mental status grossly normal H&P: Results Labs Labs: Short CBC 11/06/24 Range/Units 17:31 WBC 8.1 (4.5-10.0) K/mm3 Hgb 11.7 L (12.0-15.0) g/dL Hct 32.5 L (37.0-47.0) % Plt Count 213 (150-375) k/mm3 Assessment and Plan Assessment and plan (1) Encounter for induction of labor: Code(s): Z34.90 - Encounter for supervision of normal , unspecified, unspecified trimester Status: Acute Assessment and Plan: 1. Admit 2. Cytotec then Pitocin induction.
--- NOTE | 2024-11-07 08:18 | PM.OBPNLAB ---
Pain Control Date/time seen: 11/07/24 08:18 Comments: Cat 1, irreg ctx, cervix . Requested epidural pending.
[2024-11-07] MEDS: PHENYLEPHRINE 1,000 MCG/10 ML SYRINGE 100 MCG IV PUSH (09:43)
--- NOTE | 2024-11-07 09:51 | P.PNAN_ITS ---
Anes - Initial Pre Proc Eval Procedure: labor epidural Date/Time: 11/07/24 09:51 Surgeon: Emeterio Larson MD Pre Op Diagnosis: labor pain Pre Op Diagnosis: IOL Patient Data Age: 34 Gender: F Height: 1.63 m Weight: 91 kg Last Vital Signs Temp 36.5 C 11/06/24 22:27 Pulse 55 L 11/07/24 09:50 Resp 18 11/06/24 22:27 BP 107/59 L 11/07/24 09:50 Pulse Ox 99 11/07/24 09:48 O2 Del Method Room Air 11/06/24 17:42 Allergies Allergy/AdvReac Type Severity Reaction Status Date / Time No Known Allergies Allergy Verified 11/06/24 18:03 Home Medications ?Medication ?Instructions ?Recorded ?Confirmed ?Type cetirizine 10 mg tablet (Zyrtec) 10 mg PO DAILY PRN al lergy symptoms 04/06/24 11/06/24 History docosahexaenoic acid 200 mg 200 mg PO DAILY 04/06/24 0 11/06/24 History capsule ( DHA) aspirin 81 mg tablet 81 mg PO DAILY 09/07/2410/19 History ferrous sulfate 137 mg (45 mg 137 mg PO DAILY 10/15/24 11/06/24 History iron) tablet,extended release (Slow Fe) Laboratory Tests 11/06/24 17:31 WBC 8.1 K/mm3 (4.5-10.0) RBC 3.67 L M/mm3 (4.2-5.4) Hgb 11.7 L g/dL (12.0-15.0) Hct 32.5 L % (37.0-47.0) MCV 88.6 fl (80-100) MCH 31.9 pg (26-34) MCHC 36.0 g/dl (32-36) RDW 12.6 % (11.5-14.5) Plt Count 213 k/mm3 (150-375) MPV 10.2 fl (7.4-10.4) Immature Gran % (Auto) 0.4 % (0-0.5) Neut % (Auto) 69.9 % (45.5-73.1) Lymph % (Auto) 20.1 % (18.3-44.2) [place] % (Auto) 8.6 H % (2.6-8.5) Eos % (Auto) 0.9 % (0-4.4) Baso % (Auto) 0.1 L % (0.2-1.2) Lymph # (Auto) 1.63 K/mm3 (0.9-3.2) [place] # (Auto) 0.7 H K/mm3 (0.1-0.6) Eos # (Auto) 0.1 K/mm3 (0-0.3) Baso # (Auto) 0.0 K/mm3 (0.0-0.1) Abs Immat Gran (auto) 0.03 K/mm3 (0.00-0.031) Absolute Neuts (auto) 5.7 K/mm3 (1.3-6.7) Absolute Nucleated RBC 0.000 K/mm3 (0.0-0.012) Nucleated RBC % 0.0 % (0.0-0.2) Syphilis IgG/IgM Ab Non-reactive (Nonreactive) Blood Type B Positive Antibody Screen Negative Patient hx anesthesia problems: none Family hx anesthesia problems: none Results Review: All pre-operative results and documents have been reviewed as part of the pre-operative evaluation. [facility] Past Medical History Medical History Anemia Surgical History Surgical History [place] teeth removed H/O knee surgery Family History Family History Father Hypertension Asthma Grandparent Family history of malignant neoplasm of brain Diabetes mellitus Cerebrovascular accident Family history of type 2 diabetes mellitus Hypertension Liver cancer Sibling Asthma Social History Social History Smoking status: Never smoker Alcohol intake: former Substance use: never Do You Feel Safe in your Home?: Yes Lack of Transportation: No Lack of Food: Never True Current Housing: I Have Housing Concerned About Future Housing: No Difficulty Paying Gas/Electric Bills: No Difficulty Paying for Meds: No Currently Unemployed: No Education: Master's Degree or Higher Difficulty w/ Childcare or Family Care: No Spiritual care concerns: No Anes - Eval Final PreProcedure Day of Procedure 11/07/24 09:51 Patient weight: obese ASA classification: II Anesthetic plan: proceed Anesthesia type and monitoring: regional epidural and standard monitoring Results Review: All pre-operative results and documents have been reviewed as part of the pre- operative evaluation. Informed Consent: The patient's anesthetic plan and its attendant risks and benefits were discu ssed with the patient/family/POA. Questions were solicited and answers provided to the satisfaction of the patient/family/POA.
[2024-11-07] MEDS: ePHEDrine sulfate INJ 50 MG/ML AMPUL IV PUSH ×2 (12:38→12:45)
[2024-11-07] MEDS: ONDANSETRON INJ 4 MG/2 ML VIAL IV PUSH (17:08)
[2024-11-07] MEDS: OXYTOCIN 30 UNITS/NS 500 ML 30 UNITS/500 ML BAG 999 UNITS IV CONT (19:46)
[2024-11-07] MEDS: OXYTOCIN 30 UNITS/NS 500 ML 30 UNITS/500 ML BAG 125 UNITS IV CONT (20:12)
--- NOTE | 2024-11-07 20:23 | PM.OBPRVD ---
OB - Vaginal Delivery Note Procedure Delivery date: 11/07/24 Intrapartal Events: Decelerations Induction method: Per Misoprostol Protocol and Per Pitocin Protocol Delivery augmentation: Rupture of Membranes and Pitocin Delivery monitor: External FHT Route of delivery: Episiotomy description: Left Mediolateral Delivery repair: vicryl (2.0 vicryl) Specimen: No Quantitative Blood Loss (ml): 350 Anesthesia type: Epidural Disposition: Floor Complications: No immediate complications Narrative: She presented for [facility]. She received cytotec and then Pitocin. She had AROM clear fluid. She progressed to active labor and had anterior lip. position OP. Episode of bradycardia present. Resolved with Pitocin stopped. She continued to contract. She was placed in modified position. She felt pressure after 20min and was complete. During second stage, decelerations present and a left mediolateral episiotomy was performed. Infant's head and anterior shoulder was delivered. Nose and mouth suctioned at perineum. With gentle traction, the rest of the was delivered and placed on maternal abdomen. vigorously crying. Peds present due to her risk of shoulder dystocia. There was terminal meconim. Delayed cord clamping after 1 minute. Cord blood and cord gases obtained. Pitocin started. Placenta delivered spontaneously and intact. Episiotomy repaired with 2.0 vicryl. Lower uterine segment cleared of clot x 2. Bladder drained of approximately 200cc. 1000mcg cytotec placed rectally. Uterine tone good. Fundus firm. Sponge count correct. Baby Date of : 11/07/24 Time of : 19:43 Gestational Age by Date: 39 gender: Male Weight (pounds): 9 Weight (ounces): 2 presentation: vertex position: Right Occiput Anterior Placenta delivery description: Spontaneous Cord Vessel Description: 3 Vessels score one minute: 8 score five minutes: 9
--- NOTE | 2024-11-07 20:35 | P.DS_ITS ---
DS: Admitting Diagnosis Discharge Date 11/09/24 Admitting Diagnosis Induction of labor DS: Discharge Diagnosis Discharge Diagnosis (1) Vaginal delivery: Code(s): O80 - Encounter for full-term uncomplicated delivery Status: Acute OB - DS: Summary Hospital Course Hospital Course: She was admitted for induction of labor. She had an uncomplicated vaginal delivery. course uncomplicated. OB Procedures : Ultrasound OB Procedures Intrapartum: Spontaneous Vag Delivery OB Procedures: : None Peripartum Data Infant Delivery Method: Natural Vaginal Episiotomy description: Left Mediolateral complications: none Status at Discharge Functional status at discharge: independent ambulation Time Spent with Patient Time attestation: Total time spent providing and/or coordinating discharge services: Exam Const: General: cooperative Orientation/consciousness: oriented to person, oriented to place and oriented to time HENMT: Face/Nose/Sinus: Normal external nose present Eyes: General: appearance normal, both eyes and all related structures Resp: Effort & Inspection: normal respiratory effort GI: Inspection: normal to inspection Skin: General skin exam: normal color Neuro: General: oriented to person, oriented to place and oriented to time Extrem: General: normal to inspection and no calf tenderness Psych: Appearance: grossly normal Mental Status: mental status grossly normal Discharge Plan Discharge Attending physician on discharge: Emeterio Larson Consulting providers: Rock Sarmiento Discharging Clinician: Emeterio Larson Patient Disposition: Home Activity: may shower, no straining and pelvic rest Diet: regular Patient Instructions: Antibiotic Form Patient Language: [place] Stand Alone Forms: General Discharge Information Follow-up/Referrals: Emeterio Larson MD [Physician, MANAGING COGNITIVE ENGINEER] - Call for Appointment Referral Note: follow up in 2-3 weeks Discharge Medications: Continued DHA 200 mg capsule 200 mg PO DAILY Slow Fe 137 mg (45 mg iron) tablet extended release 137 mg PO DAILY Discontinued aspirin 81 mg tablet 81 mg PO DAILY cetirizine [Zyrtec] 10 mg tablet 10 mg PO DAILY PRN (Reason: allergy symptoms) Date of admission: 11/06/24 17:09 Primary Care Provider: PHYSICIAN,ALBERENE STONE SETTER Admitting Provider: Emeterio Larson Attending physician on admission: Emeterio Larson Condition: Stable
[2024-11-07] MEDS: IBUPROFEN 600 MG TABLET PO (22:02)
[2024-11-07] MEDS: BENZOCAINE 20% AER SPR (*SP) 56 GM CAN 1 SPRAY TOPICAL (22:04)
[2024-11-07] MEDS: WITCH HAZEL 40 PADS 1 PAD TOPICAL (22:04)
[2024-11-07] MEDS: ACETAMINOPHEN 325 MG TABLET 650 MG PO (22:04)
[2024-11-07] MEDS: LIDOCAINE 1% LOCAL INJ 20 ML VIAL (22:05)
[2024-11-08] MEDS: ACETAMINOPHEN 325 MG TABLET 650 MG PO ×4 (03:45→21:13)
[2024-11-08] MEDS: IBUPROFEN 600 MG TABLET PO ×4 (03:45→21:13)
[2024-11-08 03:48] VITALS: BP 112/64; PULSE 66; RESP 16; TEMP 36.4; O2SAT 98
[2024-11-08 04:50] LABS: Hematocrit 30.8 % (37.0-47.0); Hemoglobin 10.6 g/dL (12.0-15.0)
[2024-11-08 07:50] VITALS: BP 106/63; PULSE 69; RESP 18; TEMP 36.2; O2SAT 97
[2024-11-08] MEDS: DOCUSATE SODIUM 100 MG CAPSULE PO ×2 (10:12→16:02)
[2024-11-08] MEDS: MULTIVIT/MIN/PREN/FOL AC/IRON TABLET 1 TAB PO (10:12)
[2024-11-08 12:05] VITALS: BP 108/71; PULSE 68; RESP 16; TEMP 36.6; O2SAT 99
--- NOTE | 2024-11-08 13:32 | WPDANLDPN2 ---
Anes-Prog Note L&D Date/Time: 11/08/24 13:32 Neuro status: Neuro function grossly intact. Cardiovascular status: normal Respiratory status: normal Airway patency: baseline Mental status: baseline Post-Op hydration status: normal Vital Signs: Last Vital Signs Temp 36.6 C 11/08/24 12:05 Pulse 68 11/08/24 12:05 Resp 16 11/08/24 12:05 BP 108/71 11/08/24 12:05 Pulse Ox 99 11/08/24 12:05 O2 Del Method Room Air 11/07/24 23:57 Pain score (VAS): 0 Post-procedural complaints: none Patient feedback: Patient satisfied with anesthetic care.
--- NOTE | 2024-11-08 15:28 | PC.NURSE ---
1529. Mother verbalizes she is able to independently latch infant with appropriate positioning and alignment. She denies any nipple discomfort and is responsively . is currently meeting outcomes for weight, output, jaundice, blood sugar and feeding frequencies of 8-12 times in 24 hours. Mother declines any additional assistance or education at this time. Mother is encouraged to call for assistance if her doesn?t latch, pain with latching, questions or concerns. Mother voiced understanding of information shared along with the mom/baby guide for an additional resource. Reported to the Primary RN.
[2024-11-08 16:00] VITALS: BP 106/65; PULSE 56; RESP 20; TEMP 36.4
[2024-11-08 20:15] VITALS: BP 129/79; PULSE 64; RESP 18; TEMP 36.6; O2SAT 100
--- NOTE | 2024-11-08 21:39 | P.PNOB_ITS ---
OB - PN: Subj Subjective Date/time seen: 11/08/24 21:39 Patient comments: pain well controlled, tolerating diet and other (Decreasing lochia.) baby status: doing well and nursing well [place] feeding status: exclusively breast feeding OB - PN: Obj Data Labs 11/08/24 03:38 Labs: Laboratory Results - last 24 hr 11/08/24 03:38 Hgb 10.6 L Hct 30.8 L OB - PN A/P Assessment and Plan (1) Vaginal delivery: Code(s): O80 - Encounter for full-term uncomplicated delivery Status: Acute Assessment and Plan: 1. PPD1- doing well. 2. Routine care. Plan day: 1 Plan: routine care Comments: Patient doing well. Time Spent With Patient Time: Total time spent is greater than 50% in coordination of care (as documented) at patient's floor/unit and/or counseling patient: Exam 2 Psych: Affect: normal affect Other: Abd: fundus firm below umbilicus, nontender Perineum: healing Ext: nontender
--- NOTE | 2024-11-08 21:41 | P.PNOB_ITS ---
OB - PN: Subj Subjective Date/time seen: 11/08/24 1241 Patient comments: pain well controlled, tolerating diet and other (Decreasing lochia.) baby status: doing well and nursing well [place] feeding status: exclusively breast feeding OB - PN: Obj Data Labs 11/08/24 03:38 Labs: Laboratory Results - last 24 hr 11/08/24 03:38 Hgb 10.6 L Hct 30.8 L OB - PN A/P Assessment and Plan (1) Vaginal delivery: Code(s): O80 - Encounter for full-term uncomplicated delivery Status: Acute Plan day: 1 Plan: routine care Comments: Patient doing well. Time Spent With Patient Time: Total time spent is greater than 50% in coordination of care (as documented) at patient's floor/unit and/or counseling patient: Exam 2 Psych: Affect: normal affect Other: Abd: fundus firm below umbilicus, nontender Perineum: healing Ext: nontender
[2024-11-09] MEDS: ACETAMINOPHEN 325 MG TABLET 650 MG PO (05:26)
[2024-11-09] MEDS: IBUPROFEN 600 MG TABLET PO (05:27)
[2024-11-09 08:05] VITALS: BP 123/69; PULSE 58; RESP 18; TEMP 37.1; O2SAT 97
--- NOTE | 2024-11-09 08:16 | P.PNOB_ITS ---
OB - PN: Subj Subjective Date/time seen: 11/09/24 08:16 Patient comments: pain well controlled, tolerating diet and other (Decreasing lochia.) baby status: doing well and nursing well [place] feeding status: exclusively breast feeding OB - PN: Obj Data Labs 11/08/24 03:38 OB - PN A/P Assessment and Plan (1) Vaginal delivery: Code(s): O80 - Encounter for full-term uncomplicated delivery Status: Acute Plan day: 2 Plan: discharge home and other Comments: Patient doing well. Follow up 4-6 weeks. Discharge instructions provided. Time Spent With Patient Time: Total time spent is greater than 50% in coordination of care (as documented) at patient's floor/unit and/or counseling patient: Time with patient: less than 15 minutes Exam 2 Psych: Affect: normal affect Other: Abd: fundus firm below umbilicus, nontender Ext: nontender
== END 2024-11-09 12:55 | disposition home or self-care (01) | DRG 807 ==
LOC: ANHLDR 17:11 → ANHOB2 11-07 23:24
PROVIDERS: Admitting Provider Obstetrics & Gynecology; Visit Provider Obstetrics & Gynecology
DX: O76 Abnormality in fetal heart rate and rhythm complicating labor and delivery (principal); Z37.0 Single live birth; Z3A.39 39 weeks gestation of pregnancy; O70.9 Perineal laceration during delivery, unspecified
CPT/HCPCS: 36415; 85014; 85018; 85025; 86593; 86850; 86900; 86901; A9270; J2003; J2371; J2405; J2590; J2795; J7120